=== PATIENT | female | born 1980 | race Caucasian/White ===

== ENCOUNTER 2017-08-23 09:50 | Outpatient (CLI) | payer OTHER, SELFPAY | END 2017-08-23 09:51 | disposition home or self-care (01) | LOC: DTY/OP 09:50 | PROVIDERS: ATTEND Surgery | DX: E66.01 Morbid (severe) obesity due to excess calories (principal); G47.30 Sleep apnea, unspecified | CPT/HCPCS: 97802 ==

== ENCOUNTER 2017-09-09 07:07 | Inpatient (IN) | payer OTHER ==
[2017-09-08 13:43] VITALS: BMI 64.9
[2017-09-09] MEDS ORDERED: CEFAZOLIN/Water 2 GM/20 ML SYRINGE ONE (09:14)
[2017-09-09] MEDS ORDERED: Heparin 5,000 UNITS/ML VIAL ONE (09:14)
--- NOTE | 2017-09-09 09:51 | HP ---
CHIEF COMPLAINT: Morbid obesity. HISTORY: This is a 37-year-old female who has been overweight for many years and attempted multiple weight loss programs without success. She is here for sleeve gastrectomy. PAST MEDICAL HISTORY: Significant for seasonal allergies, back pain, chest pain, chronic cough, freq uent headaches, indigestion. PAST SURGICAL HISTORY: She has had cholecystectomy in 1995, Lasik surgery in 2007, mouth surgery in 1994. MEDICATIONS: Thyroid, phentermine, alprazolam, Lybrel, Lasix, spironolactone, Carbinoxamine Maleate, omeprazole. ALLERGIES: No known drug allergies. FAMILY HISTORY: Both parents alive in good health. SOCIAL HISTORY: Former smoker, occasional alcohol. PHYSICAL EXAMINATION: VITAL SIGNS: Height 5 foot 5, weight 403, body mass index 67.1, blood pressure 131/91, pulse 108. GENERAL: She is a well-developed, well-nourished female in no apparent distress. HEENT: Good hair growth. No alopecia. Pupils equal, round, and reactive. Extraocular motor intact . Pharynx clear. Good dentition. NECK: Supple, no thyroid masses, no carotid bruits. LUNGS: Clear. HEART: Regular rate and rhythm. BREASTS: No palpable breast masses. No lymphadenopathy. ABDOMEN: Obese, soft. No palpable masses or hernias. EXTREMITIES: Good pulses. No pedal edema. BACK: No spinal tenderness or deformity. ASSESSMENT: Morbid obesity with comorbidities. PLAN: Laparoscopic sleeve gastrectomy. CONSENT: I have discussed the planned procedure as well as risk of bleeding, infection, injury to es ophagus, spleen, loops of bowel, need to open. She understands and gives informed consent.
[2017-09-09] MEDS ORDERED: Midazolam HCl 2 mg/2 ml Vial ONE (10:37)
[2017-09-09] MEDS ORDERED: Fentanyl 100 MCG/2 ML VIAL ONE (10:37)
[2017-09-09] MEDS ORDERED: HYDROmorphone 0.5 MG/0.5 ML SYRINGE ONE ×3 (10:38→13:10)
[2017-09-09] MEDS ORDERED: Lidocaine 1% (PF) 30 ML VIAL ONE (10:38)
[2017-09-09] MEDS ORDERED: Bupivacaine/Epinephrine 0.25% 30 ML VIAL ONE (10:45)
[2017-09-09] MEDS ORDERED: diphenhydrAMINE 50 MG/ML VIAL IVP PRN ×2 (10:59→12:25)
[2017-09-09] MEDS ORDERED: Naloxone HCl 0.4 mg/ml Vial IV PRN (10:59)
[2017-09-09] MEDS ORDERED: diphenhydrAMINE 25 MG CAP PO PRN (10:59)
[2017-09-09] MEDS ORDERED: diphenhydrAMINE 50 MG/ML VIAL IM PRN (10:59)
[2017-09-09] MEDS ORDERED: Zolpidem Tartrate 5 MG TAB PO PRN (10:59)
[2017-09-09] MEDS ORDERED: HYDROmorphone 2 MG/ML VIAL SLOW IVP PRN (10:59)
[2017-09-09] MEDS ORDERED: Promethazine HCl 25 MG/ML VIAL SLOW IVP PRN (10:59)
[2017-09-09] MEDS ORDERED: Promethazine HCl 25 MG/ML VIAL IM PRN ×3 (10:59→12:25)
[2017-09-09] MEDS ORDERED: HYDROmorphone 10 mg/100 ml CADD IVPB PRN (10:59)
[2017-09-09] MEDS ORDERED: Ondansetron HCl/PF 4 MG/2 ML Vial IVP PRN ×3 (10:59→12:25)
[2017-09-09] MEDS ORDERED: Communication Order-Pharmacy FS SCH (11:00)
[2017-09-09] MEDS ORDERED: Dextrose 5% in Water 1,000 ML IV PRN (12:25)
[2017-09-09] MEDS ORDERED: hydrALAZINE 20 MG/ML VIAL SLOW IVP PRN (12:25)
[2017-09-09] MEDS ORDERED: Dextrose 50% Abboject 50 ML SYRINGE SLOW IVP PRN (12:25)
[2017-09-09] MEDS ORDERED: Hydrocodone-Acetamin 15 ML UDCUP PO PRN (12:25)
--- NOTE | 2017-09-09 12:37 | OP ---
PREOPERATIVE DIAGNOSIS: Morbid obesity. SURGEON: Alphonse Salmeron M.D. PROCEDURE PERFORMED: Laparoscopic sleeve gastrectomy with intraoperative esophagogastroscopy. INDICATIONS: The patient is a 37-year-old female, morbidly obese, who has attempted multiple weight loss programs without success. FINDINGS: A 38 [place] bougie used. PROCEDURE IN DETAIL: After informed consent was obtained, the patient was taken to the operating sabrina m and given general endotracheal anesthesia. She was placed in supine position. The abdomen was pre pped and draped in usual fashion. Local anesthesia infiltrated subcutaneously and deep and a 12 mm i ncision was performed approximately 8 inches below the xiphoid slightly to the left. Veress needle i nserted. Drop test performed. Pneumoperitoneum was created to a volume of 2 liters of carbon dioxid e. Utilizing a bladeless 12 mm trocar and 0 degree laparoscope, direct visual entry in the abdominal cavity was performed. Pneumoperitoneum was created to a pressure of 15 mmHg. The patient placed in a steep reverse Trendelenburg position. Nathansen liver retractor inserted. Left lobe of liver ret racted superiorly. The pylorus identified a 12 mm port placed on the right beneath it, two 12s place d left subcostal. The omentum was taken off the greater curvature 5 cm from the pylorus utilizing th e LigaSure. Short gastrics divided with the LigaSure and the left crura defined with the LigaSure. A 38-[place] bougie inserted directed into the antrum. The linear 60 mm green load stapler used to di vide the antrum to the bougie, gold load along the bougie, and a series of blues through the angle of His. Intraoperative endoscopy was performed. The video endoscope inserted under direct vision and advanced into the sleeve. The staple line inspected. There was no bleeding. Staple line then teste d by inflating the new stomach with pressurized air and water. There was no air leak. Stomach decom pressed. Scope removed. The remnant stomach removed from the abdomen through the left lateral port site. The fascia closed with interrupted 0 Vicryl suture and the skin closed with interrupted 4-0 Ra pide. Dermabond applied. The patient tolerated the procedure well and was transferred to recovery i n good condition. Sponge and needle count verified correct x2.
[2017-09-09] MEDS ORDERED: Labetalol HCl 100 MG/20 ML VIAL ONE (12:53)
[2017-09-09] MEDS ORDERED: Dexamethasone 20 MG/5 ML VIAL ONE (13:05)
[2017-09-09] MEDS ORDERED: Lidocaine 1% PF 5 ML VIAL ONE (13:05)
[2017-09-09] MEDS ORDERED: Labetalol 100 MG/20 ML MDV ONE (13:05)
[2017-09-09] MEDS ORDERED: PROPOFOL 200 MG/20 ML VIAL ONE (13:05)
[2017-09-09] MEDS ORDERED: Glycopyrrolate 0.2 MG/ML 5 ML SYRINGE ONE (13:05)
[2017-09-09] MEDS ORDERED: Ondansetron HCl/PF 4 MG/2 ML Vial ONE (13:05)
[2017-09-09] MEDS ORDERED: Ketorolac Tromethamine 30 MG/ML VIAL ONE (13:05)
[2017-09-09] MEDS: Acetaminophen 1,000 MG in Premix Bag 1 BAG IVPB SCH ×2 (14:53→16:55)
[2017-09-09] MEDS: Ketorolac Tromethamine 30 MG/ML VIAL IVP SCH ×2 (14:53→16:55)
[2017-09-09] MEDS: D5 1/2 NS w/20 mEq KCL 1,000 ML IV SCH ×2 (14:54→20:16)
[2017-09-09] MEDS: CEFAZOLIN/Water 2 GM/20 ML SYRINGE SLOW IVP SCH (17:04)
[2017-09-10] MEDS: CEFAZOLIN/Water 2 GM/20 ML SYRINGE SLOW IVP SCH (00:11)
[2017-09-10] MEDS: Ketorolac Tromethamine 30 MG/ML VIAL IVP SCH ×2 (00:18→05:13)
[2017-09-10] MEDS: Acetaminophen 1,000 MG in Premix Bag 1 BAG IVPB SCH ×2 (00:18→05:14)
[2017-09-10] MEDS: D5 1/2 NS w/20 mEq KCL 1,000 ML IV SCH (05:17)
[2017-09-10 05:28] LABS: #Lymphocytes 1.3 thou/uL (1.20-3.40); #Monocytes 0.7 thou/uL (0.11-0.59); #Neutrophils 11.4 thou/uL (1.40-6.50); %Eosinophils 0.1 % (0.0-10.0); %Lymphocytes 9.8 % (21.0-51.0); %Monocytes 5.1 % (0.0-10.0); Hemoglobin 12.9 g/dL (12.0-16.0); Mean Corpuscular HGB CONC 33.7 g/dL (32.0-36.0); Mean Corpuscular Hemoglobin 32.3 pg (27.0-31.0); Mean Platelet Volume 8.1 fL (7.4-10.4); Platelet Count 214 thou/uL (130-400); RBC Distribution Width 11.9 % (11.5-14.5); White Blood Cell (WBC) Count 13.4 thou/uL (4.8-10.8)
[2017-09-10 05:30] LABS: Anion Gap 12 mmol/L (10-20); BUN (Urea Nitrogen) 8 mg/dL (7.0-18.7); Calc. Creatinine Clearance 287 mL/min (70-130); Calcium 8.5 mg/dL (7.8-10.44); Carbon Dioxide 24 mmol/L (22-29); Chloride 107 mmol/L (98-107); Estimated GFR-MDRD 87; Glucose 151 mg/dL (70-105); Potassium 4.4 mmol/L (3.5-5.1); Sodium 139 mmol/L (136-145)
[2017-09-10 07:52] VITALS: BP 148/73; TEMP 97.7
[2017-09-10] MEDS ORDERED: Enoxaparin Sodium 40 MG/0.4 ML SYRINGE SC SCH (09:00)
[2017-09-10] MEDS ORDERED: Pantoprazole 40 MG VIAL IVP SCH (09:00)
--- NOTE | 2017-09-10 11:32 | RAD ---
UPPER GI SERIES SINGLE COLUMN: Date: 09-10-17 History: 37-year-old female immediately status post bariatric surgery. Technique: Patient swallowed 15 ml of Gastrografin upright. Brief, intermittent frontal fluoroscopy was performe d. FINDINGS: Contrast material traverses the narrowed gastric channel and enters the duodenum at an appropriate ti me. There is no evidence of extravasation. IMPRESSION: 1. Status post vertical sleeve gastrectomy. 2. No evidence of complications. POS: JUDY
--- NOTE | 2017-09-10 11:38 | DIS ---
DISCHARGE DIAGNOSIS: Morbid obesity. PROCEDURES DURING ADMISSION: Laparoscopic sleeve gastrectomy, intraoperative esophagogastroscopy, an d postoperative Gastrografin swallow. HOSPITAL COURSE: The patient was admitted and taken to the operating room where she underwent a slee ve gastrectomy with intraoperative esophagogastroscopy. Postoperatively, she has done well. Her x-r ay was fine. She was started on liquid. She is tolerating well. She is discharged home in good con dition on hydrocodone and Zofran. She will follow up with me in 2 weeks.
== END 2017-09-10 11:30 | disposition home or self-care (01) | DRG 641 ==
LOC: SURG A 07:07
PROVIDERS: ADMIT Surgery; ATTEND Surgery
PROC: 0DJ08ZZ Inspection of Upper Intestinal Tract, Via Natural or Artificial Opening Endoscopic (ICD-10-PCS; principal; 2017-09-09)
DX: E66.01 Morbid (severe) obesity due to excess calories (principal); Z68.44 Body mass index [BMI] 60.0-69.9, adult
CPT/HCPCS: 36415; 74241; 80048; 85025; 88307; 88312; C9113; J0131; J1100; J1170; J1644; J1650; J1885; J2001; J2250; J2405; J2704; J3010